=== PATIENT | female | born 1965 | race Caucasian/White ===

== ENCOUNTER 2018-04-04 22:24 | Emergency (ER) | payer SELFPAY ==
[~2018-04-04] VITALS: Ht 167.6 cm; Wt 85.0 kg
[2018-04-04 23:57] LABS: CLARITY URINE CLEAR (CLEAR); COLOR URINE YELLOW (YELLOW); KETONES URINE NEGATIVE (NEGATIVE); LEUKOCYTE ESTERASE URINE 1+ (NEGATIVE); NITRITE URINE NEGATIVE (NEGATIVE); OCCULT BLOOD URINE NEGATIVE (NEGATIVE); PROTEIN URINE NEGATIVE (NEGATIVE); SPECIFIC GRAVITY URINE 1.009 (1.005-1.030); UROBILINOGEN URINE 0.2 E.U./dL (0.2-1.0)
[2018-04-05] MEDS ORDERED: ONDANSETRON HCL 4MG/2ML INJ IV STA (03:21)
[2018-04-05 03:33] LABS: BASOPHILS % 0.8 % (0.0-2.0); EOSINOPHILS % 1.3 % (0.0-5.0); HEMATOCRIT. 44.3 % (36.0-48.0); LYMPHOCYTES % 30.7 % (20.0-50.0); MEAN CORPUSCULAR HEMOGLOBIN 29.9 pg (28.0-32.0); MEAN CORPUSCULAR VOLUME 88.4 fL (81.0-99.0); MEAN PLATELET VOLUME 7.9 fl (7.4-10.4); MONOCYTES % 7.4 % (2.0-8.0); NEUTROPHILS % 59.8 % (40.0-76.0); PLATELET 246 x1000/uL (130-400); RED BLOOD CELL COUNT 5.01 mill/uL (4.2-5.4); RED CELL DISTRIBUTION WIDTH 13.3 % (11.6-14.6)
[2018-04-05 03:39] LABS: CHLORIDE 106 mEq/L (98-107)
[2018-04-05] MEDS ORDERED: MORPHINE SULFATE 4 MG/ML CPJ (NOT FOR IM USE) IV ONE (05:45)
[2018-04-05] MEDS ORDERED: SODIUM CHLORIDE 0.9% 1,000 ML IV ONE (05:45)
[2018-04-05 07:25] VITALS: BP 111/73
== END 2018-04-05 07:47 | disposition home or self-care (01) ==
LOC: ER 22:24
DX: R10.11 Right upper quadrant pain (principal); E87.2 Acidosis; R03.0 Elevated blood-pressure reading, without diagnosis of hypertension
CPT/HCPCS: 36415; 71045; 74176; 80053; 81003; 83605; 83690; 84484; 85025; 85610; 93005; 96374; 99284; J2405; J7030; J2270